=== PATIENT | male | born 1960 ===

== ENCOUNTER 2022-12-31 17:10 | Outpatient (CLI) | payer MEDICAID, SELFPAY | END 2022-12-31 17:11 | disposition home or self-care (01) | PROVIDERS: PCP Emergency Medicine; Visit Provider Emergency Medicine | DX: Z00.00 Encounter for general adult medical examination without abnormal findings (principal); I10 Essential (primary) hypertension; E78.5 Hyperlipidemia, unspecified; R03.0 Elevated blood-pressure reading, without diagnosis of hypertension; N40.0 Benign prostatic hyperplasia without lower urinary tract symptoms | CPT/HCPCS: 80053; 80061; 84153 ==

== ENCOUNTER 2024-01-22 08:47 | Outpatient (CLI) | payer MEDICAID, SELFPAY ==
--- OUTSIDE RECORDS SUMMARY | 2024-01-22 08:50 | XMS_ITS | Clinical Summary ---
Author Organization [facility] Address [place], [place] [address] Care Team Providers Care Legal Nurse Consultant Name Role Phone Pcp, No Primary Care Provider Unavailabl e Allergies No known active allergies Medications Medication Sig Dispensed Refills Start Date End Date Status omeprazole 20 mg tablet Take 1 Tablet (20 mg) by mouth once daily. 0 10/11/2020 Active alfuzosin (UROXATRAL) 10 mg Sustained-Release tabletIndications:Wea k urinary stream Take 1 Tablet (10 mg) by mouth once daily with a meal. 30 Tablet 11 10/11/2020 Active Social History Tobacco Use Types Packs/Day Years Used Date Smoking Tobacco: Never Smokeless Tobacco: Never Tobacco Cessation:Counseling Given: Yes Alcohol Use Standard Drinks/Week Comments Never 0 (1 standard drink = 0.6 oz pur e alcohol) Sex and Gender Information Value Date Recorded Sex Assigned at Not on file Gender Identity Not on file Sexual Orientation Not on file Obstetrics History Last Filed Vital Signs Vital Sign Reading Time Taken Comments Blood Pressure 144/97 10/11/2020 4:14 PM CDT Pulse 86 10/11/2020 3:53 PM CDT Temperature - - Respiratory Rate 18 10/11/2020 3:53 PM CDT Oxygen Saturation 98% 10/11/2020 3:5 3 PM CDT Inhaled Oxygen Concentration - - Weight 77.1 kg (170 lb) 10/11/2020 3:53 PM CDT Pt weighed with shoes on. Height - - Body Mass Index - - Plan of Treatment Health Maintenance Due Date Last Done Comments Tdap 1970 Depression screening for age 12+ 1971 HIV for age 15-65 1974 BMI (ht and wt on same day) for age 18+ 1977 Hepatitis C screening for ag e 18-79 1977 Tetanus booster 1979 Colonoscopy through age 75 2004 Lipids for age 45-75 2004 Zoster (shingles) series for age 50+ (1 of 2) 2009 COVID-19 vaccine series (2022- season) 2024 Influenza for age 50-64 01/18/2024 Pneumococcal series for age 6-64 Aged Out No longer eligible based on patient's age to complete this topic Care Teams Legal Nurse Consultant Relationship Specialty Start Date End Date Pcp, No . PCP - General 06/03/11
== END 2024-01-22 08:48 | disposition home or self-care (01) ==
PROVIDERS: PCP Emergency Medicine; Visit Provider Emergency Medicine
DX: E78.2 Mixed hyperlipidemia (principal); R73.03 Prediabetes; Z12.5 Encounter for screening for malignant neoplasm of prostate
CPT/HCPCS: 80048; 80061; G0103